=== PATIENT | female | born 2005 | race Hispanic/Latino ===

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

== ENCOUNTER 2023-12-21 19:48 | Emergency (ER) | payer BC, OTHER, SELFPAY ==
[2023-12-21] MEDS ORDERED: diphenhydrAMINE 50 MG/ML VIAL ONE (20:23)
[2023-12-21] MEDS ORDERED: Metoclopramide HCl 10 MG (2 mL) VIAL ONE (20:24)
[2023-12-21] MEDS ORDERED: Ketorolac Tromethamine 30 MG (1 mL) VIAL ONE (20:24)
== END 2023-12-21 22:22 | disposition home or self-care (01) ==
LOC: CSHERS 19:48
DX: R51.9 Headache, unspecified (principal); Z55.6 Problems related to health literacy
CPT/HCPCS: 96374; 96375; J1200; J1885; J2765